=== PATIENT | male | born 1985 | race American Indian/Alaskan Native ===

== ENCOUNTER 2019-11-27 15:13 | Emergency (ER) | payer MEDICARE ==
[2019-11-27 15:56] LABS: Hematocrit 28.8 % (35.5-45.6); Hemoglobin 8.9 gm/dl (11.8-15.2); Mean Corpuscular HGB Conc 31 % (32-34); Mean Corpuscular Volume 85 fl (84-94); Platelet Count 357 K/mm3 (140-440); Red Blood Count 3.37 M/mm3 (3.65-5.03)
[2019-11-27 15:57] LABS: Red Cell Distribution Width 20.8 % (13.2-15.2)
[2019-11-27] MEDS ORDERED: SODIUM CHLORIDE 0.9% 1000 ML 1,000 ML IV ONE (15:57)
--- NOTE | 2019-11-27 16:02 | Emergency Department Report ---
HPI - General Chief Complaint: Abdominal Pain Time Seen by Provider: 11/27/19 15:33 - HPI HPI: 34-year-old -[place] male presents to the emergency department with a complaint of lower abdominal pain, nausea with 2 episodes of vomiting and some dark bloody stool has been going on since yesterday. Patient has a history of Crohn's disease and lower extremity DVT. He is not currently on any blood thinners secondary to the fact that it apparently exacerbates his Crohn's disease. The father went over today to see the patient's GI physician, Dr. Servin, who apparently told them to come to the emergency department for further evaluation and something about getting his Remicade "set up." The patient is on prednisone, Imuran and Remicade (every 6-8 weeks). He has a history of previous colon resection. The patient was recently at [facility] for similar symptoms. ED Past Medical Hx - Past Medical History Hx Hypertension: No Hx Heart Attack/AMI: No Hx Congestive Heart Failure: No Hx Diabetes: No Hx Deep Vein Thrombosis: Yes Hx Pulmonary Embolism: No Hx Liver Disease: No Hx Renal Disease: No Hx Sickle Cell Disease: No Hx Arthritis: No Hx Kidney Stones: No Hx Asthma: No Hx COPD: No Hx Tuberculosis: No Hx HIV: No Additional medical history: Crohns disease, DVT left leg. - Surgical History Hx Coronary Stent: No Hx Pacemaker: No Hx Internal Defibrillator: No Hx Appendectomy: Yes Additional Surgical History: 3 intestinal surgeries, most recently intestinal resection for SBO in August 2013 - Social History Smoking Status: Never Smoker - Medications Home Medications: Home Medications Medication Instructions Recorded Confirmed Last Taken Type predniSONE [Deltasone] 1 tab PO BID 08/26/13 10/07/18 10/06/18 History azaTHIOprine [Imuran] 50 mg PO BID 06/15/15 10/07/18 10/06/18 History Oxycodone HCl [oxyCODONE] 20 mg PO Q6H PRN 10/07/18 10/07/18 10/06/18 History Famotidine [Pepcid] 20 mg PO BID #20 tablet 10/10/18 Unknown Rx Magnesium Oxide [Mag-Ox] 400 mg PO QDAY #5 tablet 10/10/18 Unknown Rx metroNIDAZOLE [Flagyl] 500 mg PO Q8HR #36 tablet 10/10/18 Unknown Rx oxyCODONE [Roxicodone] 5 mg PO BID PRN #6 tablet 10/10/18 Unknown Rx predniSONE [Deltasone] 2 tab PO DAILY #21 tablet 10/10/18 Unknown Rx Docusate Sodium [Colace] 100 mg PO BID PRN #20 capsule 11/27/19 Unknown Rx ED Review of Systems ROS: Stated complaint: VOMIT/FLARE UP/ABD PAIN Other details as noted in HPI Comment: All other systems reviewed and negative Constitutional: denies: chills, fever Eyes: denies: eye pain, vision change ENT: denies: ear pain, throat pain Respiratory: denies: cough, shortness of breath Cardiovascular: denies: chest pain, palpitations Gastrointestinal: abdominal pain, nausea, vomiting, melena Genitourinary: denies: dysuria, discharge Musculoskeletal: denies: back pain, arthralgia Skin: denies: rash, lesions Neurological: denies: headache, weakness Physical Exam - Physical Exam Physical Exam: GENERAL: The patient is well-developed well-nourished. HEENT: Normocephalic. Atraumatic. Patient has moist mucous membranes. EYES: Extraocular motions are intact. NECK: Supple. Trachea is midline. CHEST/LUNGS: Clear to auscultation. There is no respiratory distress noted. HEART/CARDIOVASCULAR: Regular. There is mild tachycardia. There is no murmur. ABDOMEN: Abdomen is soft. There is some lower abdominal tenderness to palpation. No guarding. Patient has normal bowel sounds. There is no abdominal distention. SKIN:Skin is warm and dry. . NEURO: The patient is awake, alert, and oriented. The patient is cooperative. The patient has no focal neurologic deficits. Normal speech. MUSCULOSKELETAL: There is no tenderness or deformity. There is no evidence of acute injury. ED Course - Consultations Consultation #1: 11/27/19 19:57 I spoke with the window maker transportation department head, Dr Mendiola, who listened to the case presentation including his previous visit to [facility], his CT scan results, physical examination, lab results and he agrees with the plan for discharge with outpatient follow-up. - EJ/Peripheral Line Arm R Time Out Performed: Yes Indications: nurses unable to establis Skin Cleansed in Sterile Fashion: Yes Size: 20 Dressing Placed: Tegaderm, tape Patient Tolerated Procedure: well ED Medical Decision Making - Lab Data Result diagrams: 11/27/19 15:38 11/27/19 15:38 - Radiology Data Radiology results: report reviewed, image reviewed interpreted by me: Abdominal x-ray shows nonspecific nonobstructive bowel gas. Increased stool volume. CT abdomen pelvis w con INDICATION / CLINICAL INFORMATION: Abd pain. History of Crohn's disease TECHNIQUE: Axial CT imaging of abdomen and pelvis was obtained IV contrast. During the contrast injection, the patient requested the contrast to be discontinued. The best images possible were obtained. Coronal and sagittal reformatted imaging obtained and reviewed. All CT scans at this location are performed using CT dose reduction for ALARA by means of automated exposure control. COMPARISON: Prior CT abdomen/pelvis, 10/07/2018 FINDINGS: CT abdomen with contrast demonstrates grossly normal appearance of the liver, spleen, pancreas, kidneys, and adrenal glands. I cannot exclude the presence of renal calculi with IV contrast on board. No hydronephrosis or renal mass, however. CT pelvis demonstrates a very large amount stool throughout the colon. Small bowel is grossly unremarkable. I do not see evidence for acute inflammatory change within the abdomen or pelvis. No free air or free fluid. Vascular stent is present in the left common iliac vein and left external iliac vein. The appendix is not identified. Visualized lung bases show some minimal bibasilar atelectasis. No acute significant skeletal disease. IMPRESSION: 1. Excessive amount of stool noted throughout the colon consistent with constipation. 2. No definite evidence for acute Crohn's exacerbation or other acute abnormality.. - Medical Decision Making This patient presents with a two-day history of nausea, vomiting, abdominal pain and the complaint of some rectal bleeding. Patient described it as melena but on examination the patient has some brown stool without gross bleeding and the stool is negative on guaiac testing. He has reproducible lower abdominal tenderness to palpation but the abdomen is soft, nondistended and nontoxic in appearance. The patient's labs are mostly unremarkable. He does have a leukocytosis of 16,000 the patient is on chronic steroids. Normal metabolic panel. The patient did have some anemia with a hemoglobin of 8.9. I was able to obtain his records from his recent visit to [facility] and his hemoglobin is higher than when he was discharged from there about one week ago. Abdominal x-ray shows nonspecific nonobstructive bowel gas. CT scan of the abdomen and pelvis with IV contrast shows increased stool volume but otherwise no signs of any inflammatory process or obstruction. Gastroenterology was contacted and agrees with the plan for discharge home and outpatient follow-up. I checked the patient's [facility] prescription monitoring and he has many narcotic prescriptions filled including 40 Percocet 1 week ago. For this reason I explained that I was not comfortable writing for any more narcotic pain medica tion and that it is most likely these adding to his constipation. He has been instructed to follow-up with gastroenterology and return to the emergency Department with any worsening of symptoms or any acute distress. - Differential Diagnosis Crohn's disease, IBS, constipation, colitis, diverticulitis Critical Care Time: No Critical care attestation.: If time is entered above; I have spent that time in minutes in the direct care of this critically ill patient, excluding procedure time. ED Disposition Clinical Impression: Increased stool volume Abdominal pain Qualifiers: Abdominal location: lower abdomen, unspecified Qualified Code(s): R10.30 - Lower abdominal pain, unspecified Crohns disease Qualifiers: Gastrointestinal tract location: unspecified location Digestive disease complication type: without complication Qualified Code(s): K50.90 - Crohn's disease, unspecified, without complications Disposition: DC-01 TO HOME OR SELFCARE Is pt being admited?: No Condition: Stable Instructions: Constipation (ED), Crohn Disease (ED), Abdominal Pain (ED) Additional Instructions: Please follow-up with your primary care physician and window maker in the next few days. Return to the emergency Department with any worsening of your symptoms or any acute distress. Prescriptions: Docusate Sodium [Colace] 100 mg PO BID PRN #20 capsule PRN Reason: Constipation Referrals: CRISTI BARTHOLOMEW MD [Referring] - 2-3 Days SANDY SERVIN MD [Primary Care Provider] - 2-3 Days Time of Disposition: 19:57
[2019-11-27 16:07] LABS: INR 0.95 (0.87-1.13); Partial Thromboplastin Time 28.1 Sec. (24.2-36.6)
[2019-11-27] MEDS ORDERED: HYDROmorphone 1 MG/1 ML INJ IV ONE ×3 (16:07→19:42)
[2019-11-27] MEDS ORDERED: diphenhydrAMINE 50 MG/ML VIAL IV ONE ×3 (16:08→19:42)
[2019-11-27 16:14] LABS: Alanine Aminotransferase 30 units/L (7-56); BUN/Creatinine Ratio 12; Blood Urea Nitrogen 12 mg/dL (9-20); Calcium 8.9 mg/dL (8.4-10.2); Hemolysis Index 9
--- NOTE | 2019-11-27 16:21 | XRay Report ---
ABDOMEN 2 VIEW(S) INDICATION / CLINICAL INFORMATION: Abd pain. COMPARISON: None available. FINDINGS: TUBES / LINES: None. BOWEL GAS PATTERN: No significant abnormality. FREE AIR / EXTRALUMINAL GAS: None seen. ADDITIONAL FINDINGS: The intestinal sutures are seen in the right upper quadrant with vascular stents over the left pelvis. IMPRESSION: 1. No significant abnormality. Signer Name: Lucius Tavarez MD Signed: 11/27/2019 4:16 PM Workstation Name: [id number]
[2019-11-27] MEDS ORDERED: PANTOPRAZOLE 40 MG INJ IV ONE (17:36)
[2019-11-27] MEDS ORDERED: methylPREDNISolone Sod Succinate 125 MG/2 ML INJ IV ONE (17:36)
[2019-11-27 17:43] LABS: Total Cells Counted 100
[2019-11-27 17:44] LABS: Anisocytosis 1+; Basophils % (Manual) 0 % (0.0-1.8); Eosinophils % (Manual) 0 % (0.0-4.3); Hypochromasia 1+; Platelet Estimate Consistent w Auto; Poikilocytosis 1+
--- NOTE | 2019-11-27 19:17 | Cat Scan Report ---
CT abdomen pelvis w con INDICATION / CLINICAL INFORMATION: Abd pain. History of Crohn's disease TECHNIQUE: Axial CT imaging of abdomen and pelvis was obtained IV contrast. During the contrast injection, the p atient requested the contrast to be discontinued. The best images possible were obtained. Coronal and sagittal reformatted imaging obtained and reviewed. All CT scans at this location are performed usi ng CT dose reduction for ALARA by means of automated exposure control. COMPARISON: Prior CT abdomen/pelvis, 10/07/2018 FINDINGS: CT abdomen with contrast demonstrates grossly normal appearance of the liver, spleen, pancreas, kidne ys, and adrenal glands. I cannot exclude the presence of renal calculi with IV contrast on board. No hydronephrosis or renal mass, however. CT pelvis demonstrates a very large amount stool throughout the colon. Small bowel is grossly unremar kable. I do not see evidence for acute inflammatory change within the abdomen or pelvis. No free air or free fluid. Vascular stent is present in the left common iliac vein and left external iliac vein. The appendix is not identified. Visualized lung bases show some minimal bibasilar atelectasis. No acute significant skeletal disease. IMPRESSION: 1. Excessive amount of stool noted throughout the colon consistent with constipation. 2. No definite evidence for acute Crohn's exacerbation or other acute abnormality.. Signer Name: Luly Banerjee MD Signed: 11/27/2019 7:13 PM Workstation Name: [id number]
[2019-11-27] MEDS ORDERED: SODIUM CHLORIDE 0.9% 500 ML 500 ML IV ONE (19:42)
[2019-11-27 20:18] VITALS: BP 145/99
== END 2019-11-27 20:21 | disposition home or self-care (01) ==
LOC: ED 15:13
DX: K56.41 Fecal impaction (principal); K50.90 Crohn's disease, unspecified, without complications; R10.9 Unspecified abdominal pain; Z90.49 Acquired absence of other specified parts of digestive tract; Z98.890 Other specified postprocedural states; Z79.899 Other long term (current) drug therapy; Z88.4 Allergy status to anesthetic agent
CPT/HCPCS: 36415; 36556; 74019; 74177; 80053; 85007; 85025; 85610; 85730; 86850; 86900; 86901; 96361; 96374; 96375; 96376; 99284; C9113; J1170; J1200; J2930; J7030; Q9967

== ENCOUNTER 2020-05-05 20:44 | Emergency (ER) | payer MEDICARE ==
[2020-05-05 20:59] VITALS: BP 131/87
[2020-05-05 22:26] LABS: Basophils # (Auto) 0.1 K/mm3 (0.0-0.1); Basophils % (Auto) 0.5 % (0.0-1.8); Eosinophils # (Auto) 0.1 K/mm3 (0.0-0.4); Eosinophils % (Auto) 0.5 % (0.0-4.3); Lymphocytes # (Auto) 2.1 K/mm3 (1.2-5.4); Lymphocytes % (Auto) 12.7 % (13.4-35.0); Mean Corpuscular HGB Conc 30 % (32-34); Mean Corpuscular Volume 75 fl (84-94); Monocytes # (Auto) 1.9 K/mm3 (0.0-0.8); Monocytes % (Auto) 11.5 % (0.0-7.3); Platelet Count 277 K/mm3 (140-440); Red Blood Count 4.17 M/mm3 (3.65-5.03)
[2020-05-05 22:30] LABS: Hematocrit 31.5 % (35.5-45.6); Hemoglobin 9.3 gm/dl (11.8-15.2)
[2020-05-05 22:31] LABS: Red Cell Distribution Width 23.4 % (13.2-15.2)
[2020-05-05 22:46] LABS: Alanine Aminotransferase 33 units/L (7-56); Albumin 3.4 g/dL (3.9-5); BUN/Creatinine Ratio 10; Blood Urea Nitrogen 10 mg/dL (9-20); Calcium 8.7 mg/dL (8.4-10.2); Hemolysis Index 4
== END 2020-05-05 23:00 | disposition left against medical advice (07) ==
LOC: ED 20:44
DX: R19.7 Diarrhea, unspecified (principal); Z53.21 Procedure and treatment not carried out due to patient leaving prior to being seen by health care provider
CPT/HCPCS: 36415; 80053; 83690; 85025